=== PATIENT | male | born 1975 | race Caucasian/White ===

== ENCOUNTER 2018-11-12 10:43 | Outpatient (CLI) | payer BC | END 2018-11-12 23:59 | disposition home or self-care (01) | LOC: CFH 10:43 | PROVIDERS: ATTEND Nurse Practitioner | DX: Z01.818 Encounter for other preprocedural examination (principal) | CPT/HCPCS: 71046 ==

== ENCOUNTER 2018-11-19 07:46 | Outpatient (CLI) | payer BC | END 2018-11-19 23:59 | disposition home or self-care (01) | LOC: CFH 07:46 | PROVIDERS: ATTEND Internal Medicine | DX: M16.12 Unilateral primary osteoarthritis, left hip (principal); I21.09 ST elevation (STEMI) myocardial infarction involving other coronary artery of anterior wall; G89.29 Other chronic pain | CPT/HCPCS: 73502; 78452; 93017; A9502 ==

== ENCOUNTER → 2019-03-27 | Outpatient (CLI) | payer BC | END | disposition home or self-care (01) | LOC: CFH 13:31 | PROVIDERS: ATTEND Internal Medicine | DX: M25.552 Pain in left hip (principal); G89.29 Other chronic pain; Z96.642 Presence of left artificial hip joint ==

== ENCOUNTER 2019-06-19 13:53 | Outpatient (CLI) | payer BC | END 2019-06-19 23:59 | disposition home or self-care (01) | LOC: CFH 13:53 | PROVIDERS: ATTEND Internal Medicine | DX: M25.752 Osteophyte, left hip (principal); Z96.642 Presence of left artificial hip joint ==

== ENCOUNTER → 2019-12-04 | Outpatient (CLI) | payer BC | END | disposition home or self-care (01) | LOC: CFH 09:28 | PROVIDERS: ATTEND Internal Medicine | DX: M25.552 Pain in left hip (principal); Z96.642 Presence of left artificial hip joint ==